=== PATIENT | female | born 1990 | race Hispanic/Latino ===

== ENCOUNTER → 2016-10-26 | Outpatient (CLI) | payer SELFPAY ==
[~2016-10-26] MED LIST: AZIT250T81 PO; DOXY100T41 PO; FERR325C PO; IBUP-15 PO; POLY10DR OU; PRED20TA PO; PREN-47 PO; birth control
[2016-10-26 14:28] VITALS: BP 132/81
--- NOTE | 2016-10-26 14:29 | Urgent Care T Sheet Gen (E) ---
Intake General Temperature (Fahrenheit): 98.5 Pulse: 89 Blood Pressure Systolic: 132 Blood Pressure Diastolic: 81 Respirations: 20 SPO2: 96 Description of Symptoms Patient presents with illness x 1 week. States her daughter recently had a cold and thinks she gave it to her. Notes ear fullness, nasal congestion, ST, [place] and cough. No fever. Been taking Tylenol but no OTC cold meds. History of Present Illness Allergies: Coded Allergies: No Known Drug Allergies (Unverified , 03/25/12) Home Meds Active Scripts Polymyxin B Sulfate/Tmp (Polytrim Eye Drops)10 Ml Drops1 Drop OU QID #10 DROPS 1 drop each eye four times daily for 7 days Prov:KANE TYLER 03/21/16 Reported Medications [ control] No Conflict Check 01/09/15 Respiratory Constitutional Symptoms: No Fever, Malaise EENTM: Ear pain Nose Congestion Throat pain Respiratory: Cough Cardiovascular: No symptoms reported Estimated Date of Delivery: 10/03/13 All Other Systems Reviewed Remaining Systems: All other systems reviewed with negative findings Past [id number]-[id number]-[id number] Hx Patient's Social History Recent foreign travel: No Surgeries/Hospitalizations Hospitalization/Surgery Hx: No surgeries Childbirth hospitalization Respiratory Respiratory History: None Cardiovascular Cardiovascular History: None Reproductive System : 2 Abortions: 1 Living Children: 0 HIV/AIDS: Negative Sexually Transmitted Diseases: No Gastrointestinal GI/Endocrine History: None Diabetes Diabetes: No HEENT Impaired Vision: Contacts, Glasses Hearing Impaired: None Psychosocial Behavior Disorders: None Physical Exam Physical Exam General Appearance: WD/WN No apparent distress Eyes, Ears, Nose, Throat Ex: TMs normal (air fluid bubbles) Pharyngeal erythema (cobblestone appearance) Other (red, swollen nasal turbinates with clear, thick drainage.) Neck Exam: Supple Lymphadenopathy Respiratory Exam: Lungs clear (deep sounding cough during exam.) Normal breath sounds Cardiovascular Exam: Regular rate, rhythm Departure Urgent Care Impression Impression: Primary Impression: Sinusitis Qualified Code: J01.00 - Acute maxillary sinusitis, unspecified Additional Impression: Cough Departure Disposition: HOME OR SELF-CARE Condition: Stable Additional Instructions: I have started the patient on a Zpak for treatment I have also started her on Prednisone x 3 days for inflammation. No NSAIDs while on steroid Rest. Fluids Return as needed Patient understands DC instructions. All questions were answered. Scripts Prednisone 20 Mg [id number] Mg PO DAILY #6 TAB Prov:ISAURA ETIENNE 10/26/16 Azithromycin (Zithromax Z-Manuel)6 Tab/Pkt [id number] Mg PO SEE INSTRUCTIONS #6 TAB Ref 0 Day One: Take 2 tablets by mouth Days Two-Five: Take 1 tablet by mouth Prov:ISAURA ETIENNE 10/26/16 End of report . ISAURA ETIENNE Oct 26, 2016 14:28
== END ==
LOC: MHUC 14:13
PROVIDERS: ATTEND Physician Assistant
DX: J01.00 Acute maxillary sinusitis, unspecified (principal); R05 Cough
CPT/HCPCS: 99213